=== PATIENT | female | born 1985 | race Caucasian/White ===

== ENCOUNTER 2022-05-24 14:06 | Emergency (ER) | payer OTHER ==
[~2022-05-24] VITALS: Ht 165.1 cm; Wt 86.2 kg
[2022-05-24 14:11] VITALS: BP 137/82
[2022-05-24] MEDS ORDERED: KETOROLAC 60 MG/2 ML VIAL IM ONE (14:50)
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
--- NOTE | 2022-05-24 16:10 | NUR ---
PT BACK FROM CT.
[2022-05-24] MEDS ORDERED: NAPR-54 PO (17:21)
[2022-05-24 17:29] VITALS: BP 108/74
--- NOTE | 2022-05-24 17:30 | NUR ---
Patient discharged with v/s stable. Written and verbal after care instructions given and explained. Patient verbalized understanding. Ambulatory with steady gait. All questions addressed prior to discharge. Advised to follow up with PMD.
== END 2022-05-24 17:30 | disposition home or self-care (01) ==
LOC: MED 14:06
DX: S93.601A Unspecified sprain of right foot, initial encounter (principal); S30.1XXA Contusion of abdominal wall, initial encounter; Z85.41 Personal history of malignant neoplasm of cervix uteri; Z90.710 Acquired absence of both cervix and uterus; Z98.890 Other specified postprocedural states; Z79.1 Long term (current) use of non-steroidal anti-inflammatories (NSAID); V89.2XXA Person injured in unspecified motor-vehicle accident, traffic, initial encounter; Y93.89 Activity, other specified; Y92.410 Unspecified street and highway as the place of occurrence of the external cause; Y99.8 Other external cause status
CPT/HCPCS: 73630; 74176; 96372; 99284; J1885; Q0092